=== PATIENT | female | born 1940 ===

== ENCOUNTER 2019-06-12 09:39 | Outpatient (CLI) | payer OTHER | END 2019-06-12 09:41 | disposition home or self-care (01) | LOC: RAD 09:39 | DX: N39.0 Urinary tract infection, site not specified (principal) ==

== ENCOUNTER 2019-08-27 10:48 | Outpatient (CLI) | payer OTHER | END 2019-08-27 10:55 | disposition home or self-care (01) | LOC: LAB 10:48 | DX: R31.29 Other microscopic hematuria (principal) ==

== ENCOUNTER → 2019-09-11 14:56 | Outpatient (CLI) | payer OTHER | END | disposition home or self-care (01) | LOC: LAB 14:56 | DX: N39.0 Urinary tract infection, site not specified (principal) ==

== ENCOUNTER 2019-10-31 10:00 | Outpatient (CLI) | payer OTHER | END 2019-10-31 10:05 | disposition home or self-care (01) | LOC: LAB 10:00 | DX: N30.00 Acute cystitis without hematuria (principal); B96.29 Other Escherichia coli [E. coli] as the cause of diseases classified elsewhere ==